=== PATIENT | male | born 1970 | race Two or more races ===

== ENCOUNTER 2025-08-03 09:58 | Inpatient (IN) | payer MEDICARE, MEDICAID ==
[2025-07-30 09:57] LABS: Hematocrit 42.3 % (41.0-53.0); Hemoglobin 14.2 g/dL (13.5-17.5); Mean Corpuscular Hemoglobin 31.2 pg (28.0-32.0); Mean Corpuscular Volume 93.2 fL (80.0-100.0); Nucleated Red Blood Cells % 0.0 %
[2025-07-30 10:08] LABS: Urine Protein, UAD Negative (Negative); Urine WBC Clumps PRESENT /hpf (None Seen)
[2025-07-30 10:13] LABS: INR 0.95 (0.9-1.15); Partial Thromboplastin Time 24.1 SEC (24.5-34.5); Prothrombin Time 10.1 sec (9.3-11.8)
[2025-07-30 10:39] LABS: Alanine Aminotransferase 22 U/L (7-40); Albumin 4.1 g/dL (3.2-4.8); Anion Gap 10 (5-15); BUN/Creatinine Ratio 10.6 (10.0-20.0); Blood Urea Nitrogen 12 mg/dL (9-23); Carbon Dioxide 24 mmol/L (20-31); Potassium 3.7 mmol/L (3.5-5.1); Sodium 143 mmol/L (136-145); Total Protein 7.1 g/dL (5.7-8.2)
[2025-07-30 10:40] LABS: Alkaline Phosphatase 121 U/L (46-116); Bilirubin, Total 0.5 mg/dL (0.2-1.0); Calcium 8.6 mg/dL (8.7-10.4); Chloride 109 mmol/L (98-107); Glucose 69 mg/dL (74-106)
[~2025-08-03] VITALS: Ht 165.1 cm; Wt 78.9 kg
[~2025-08-03 09:58] MED LIST: AMAN100T PO; ATOR10TA52 PO; CARB25TA79 PO; GABA-1250 PO; ISTR40TA PO; METH-1181 PO; PIMA34CA PO; RASA1TAB4 PO; TOPI50TA53 PO; TRAZ-228 PO
[2025-08-03] MEDS: ceFAZolin 2 GM/D5W50ml 50 ML IV ONE (11:17)
[2025-08-03] MEDS: TRANEXAMIC ACID 20 ML ONE (13:17)
--- NOTE | 2025-08-03 15:33 | DVHHP2 ---
Admitting Diagnosis: lumbar spinal stenosis with severe neurogenic claudication History of Present Illness Home Meds Reported Medications Atorvastatin Calcium (ATORVASTATIN CALCIUM) 10 Mg Tab, 10 MG PO DAILY, TAB 07/30/25 Carbidopa-Levodopa (Carbidopa/Levodopa Odt 25-100 mg) 1 Tab Tab, 1 TAB PO, TAB 07/30/25 Gabapentin (Gabapentin) 300 Mg Cap, 300 MG PO DAILY, CAP 07/30/25 Istradefylline (Nourianz) 40 Mg Tab, 40 MG PO HS, TAB 07/30/25 Pimavanserin Tartrate (Nuplazid) 34 Mg Cap, 34 MG PO QPM, CAP 07/30/25 Topiramate (Topiramate) 50 Mg Tab, 50 MG PO BID, TAB 07/30/25 Amantadine Hcl (Amantadine Hcl) 100 Mg Tab, 100 MG PO BID, TAB 07/30/25 Methocarbamol (Methocarbamol) 500 Mg Tab, 500 MG PO TID, TAB 07/30/25 Rasagiline Mesylate (Rasagiline Mesylate) 1 Mg Tab, 1 MG PO QAM, TAB 07/30/25 Trazodone Hcl (Trazodone Hcl) 100 Mg Tab, 100 MG PO QPM, TAB 07/30/25 Timing/Duration of Back Pain: Constant, Getting worse Quality of Back Pain: Aching, Burning, Fullness, Sharpness Back Pain Location: Lumbar spine Review of Systems Constitutional: No symptom reported Ears, Nose, & Throat: No symptom reported Eyes: No symptom reported Pulmonary/Respiratory: No symptom reported Cardiovascular: No symptom reported Gastrointestinal: No symptom reported Genitourinary: No symptom reported Musculoskeletal: Back pain Skin: No symptom reported Psychiatric: No symptom reported Endocrine: No symptom reported Hemotologic/Lymphatic: No symptom reported H&P Exam Vital Signs Vital Signs Date Time Temp Pulse Resp B/P (MAP) Pulse Ox O2 Delivery O2 Flow Rate FiO2 08/03/25 11:13 97.5 93 18 121/80 (94) 99 97.5 General Appeara: Well developed, Well nourished, Normal Appearance Head Exam: Normal inspection Neck Exam: Normal inspection, Non-tender, Normal alignment Eye Exam: bilateral eye Normal inspection, bilateral eye PERRL, bilateral eye EOMI Ear Exam: bilateral ear Auricle normal, bilateral ear Canal normal, bilateral ear TM normal Nasal Exam: Normal inspection Mouth: Normal Inspection Pulmonary/Respiratory: Normal inspection, Normal breath sounds, Chest non- tender, Lungs clear Cardiovascular/Chest: Normal inspection, Regular rate, Normal Rhythm Abdominal Exam: Normal bowel sounds, Soft, No tenderness, No hepatospenomegaly, No masses Rectal Exam: Deferred Back Exam: Muscle spasm, Vertebral tenderness Pelvic Exam: Not done Male Genital Exam: Not done Shoulder Exam: Normal inspection, Non-tender, Normal ROM Elbow/Forearm Exam: Normal inspection, Non-tender, Normal ROM Wrist Exam: Normal inspection, Non-tender, Normal ROM Hand Exam: Normal inspection, Non-tender, Normal ROM Hip exam: Normal inspection, Non-tender, Normal range of motion Legs: bilateral leg non-tender, bilateral leg normal inspection, bilateral leg normal range of motion, bilateral leg no evidence of injury Knees: bilateral knee non-tender, bilateral knee normal inspection, bilateral knee normal range of motion, bilateral knee no evidence of injury Ankle Exam: bilateral ankle Normal inspection, bilateral ankle Non-tender, bilateral ankle Normal range of motion, bilateral ankle No evidence of injury Foot: bilateral foot non-tender, bilateral foot normal inspection, bilateral foot normal range of motion, bilateral foot no evidence of injury Tendon/ Neuro: Motor deficit, Sensory deficit Motor/Sensory: Normal sensory function, Normal motor function, Negative Babinski's sign Deep Tendon Ref: All intact Neuro/Mental St: Alert, Oriented Appearance: Appropriate appearance, Appropriate insight Eye contact/ Speech: Cooperative, Good eye contact, Normal speech Coordination/Gait: Abnormal gait Skin Exam: Normal inspection, Normal color, Warm/dry Lymphatic: Normal inspection Labs/Xrays Labs Test 07/30/25 09:28 Range/Units White Blood Count 8.7 4.4-10.8 10^3/uL Red Blood Count 4.54 4.5-5.90 10^6/uL Hemoglobin 14.2 13.5-17.5 g/dL Hematocrit 42.3 41.0-53.0 % Mean Corpuscular Volume 93.2 80.0-100.0 fL Mean Corpuscular Hemoglobin 31.2 28.0-32.0 pg Mean Corpuscular Hemoglobin Concent 33.5 32.0-36.0 g/dL Red Cell Distribution Width 12.6 11.8-14.3 % Platelet Count 387 140-450 10^3/uL Mean Platelet Volume 7.3 6.9-10.8 fL Neutrophils (%) (Auto) 52.8 37.0-80.0 % Lymphocytes (%) (Auto) 34.0 10.0-50.0 % Monocytes (%) (Auto) 8.6 0.0-12.0 % Eosinophils (%) (Auto) 4.0 0.0-7.0 % Basophils (%) (Auto) 0.6 0.0-2.0 % Neutrophils # (Auto) 4.6 1.6-8.6 10 ^3/uL Lymphocytes # (Auto) 3.0 0.4-5.4 10 ^3/uL Monocytes # (Auto) 0.8 0-1.3 10 ^3/uL Eosinophils # (Auto) 0.4 0-0.8 10 ^3/uL Basophils # (Auto) 0.1 0-0.2 10 ^3/uL Nucleated Red Blood Cells 0.0 % Prothrombin Time 10.1 9.3-11.8 sec Prothrombin Time INR 0.95 0.9-1.15 Activated Partial Thromboplast Time 24.1 L 24.5-34.5 SEC Urine Color Colorless Yellow Urine Clarity Ex.turbid Clear Urine pH 7.0 5.0-9.0 Urine Specific [place] 1.024 1.001-1.035 Urine Protein Negative Negative Urine Ketones Negative Negative Urine Blood Negative Negative /uL Urine Nitrite Negative Negative Urine Bilirubin Negative Negative Urine Urobilinogen 2 H Negative mg/dL Urine Leukocyte Esterase Negative Negative /uL Urine RBC 1 0 - 3 /hpf Urine WBC Clumps Present None Seen /hpf Urine Microscopic WBC 14 H 0-3 /HPF Urine Squamous Epithelial Cells None seen <5 /hpf Urine Bacteria None seen None Seen /hpf Urine Glucose Normal Normal mg/dL Sodium Level 143 136-145 mmol/L Potassium Level 3.7 3.5-5.1 mmol/L Chloride Level 109 H 98-107 mmol/L Carbon Dioxide Level 24 20-31 mmol/L Anion Gap 10 5-15 Blood Urea Nitrogen 12 9-23 mg/dL Creatinine 1.13 0.700-1.30 mg/dL Glomerular Filtration Rate Calc 76 >90 mL/min BUN/Creatinine Ratio 10.6 10.0-20.0 Serum Glucose 69 L 74-106 mg/dL Calcium Level 8.6 L 8.7-10.4 mg/dL Total Bilirubin 0.5 0.2-1.0 mg/dL Aspartate Amino Transferase (AST) 20 13-40 U/L Alanine Aminotransferase (ALT) 22 7-40 U/L Alkaline Phosphatase 121 H 46-116 U/L Total Protein 7.1 5.7-8.2 g/dL Albumin 4.1 3.2-4.8 g/dL Assessment/Plan Primary Diagnosis Lumbar spinal stenosis with severe neurogenic claudication Plan admit for elective lumbar spine surgery Plan discussed with: Patient SANDRA MARIA MD Aug 03, 2025 15:33
[2025-08-03] MEDS ORDERED: fentaNYL CITRATE 100 MCG/2 ML VL ONE ×2 (15:37→16:11)
[2025-08-03] MEDS ORDERED: ONDANSETRON HCL 4 MG/2 ML VIAL ONE (15:37)
[2025-08-03] MEDS ORDERED: MIDAZOLAM HCL 2MG/2ML 2ml VIAL (1mg/ml) ONE (15:37)
[2025-08-03] MEDS ORDERED: LIDOCAINE 1% INJ PF 5ML AMP ONE (15:37)
[2025-08-03] MEDS ORDERED: METOCLOPRAMIDE HCL 5MG/ml INJ 2ml VIAL ONE (15:37)
[2025-08-03] MEDS ORDERED: ROCURONIUM 10MG/ML 10ML VIAL IV ONE (15:38)
[2025-08-03] MEDS ORDERED: PROPOFOL 10 MG/ML 20 ML IV ONE ×2 (15:38→16:07)
[2025-08-03] MEDS ORDERED: SODIUM CHLORIDE LOCK 10 ML ONE (16:15)
[2025-08-03] MEDS ORDERED: SUGAMMADEX 200mg/2ml Vial (100MG/ML) IV ONE (18:06)
--- NOTE | 2025-08-03 19:11 | DVHOP2 ---
Operative Report - 2 Report Details Date: 08/03/25 Preop Diagnosis: lumbar spinal stenosis at L3/4 and L4/5 with incapacitating neurogenic claudication Postop Diagnosis: same Surgeon: Dieter Maria MD House Painter: none Anesthesiologist: manuela Anesthesia: General Consent: The patient was informed of the risks and benefits of the procedure. These include but are not limited to complications of anesthesia, postoperative infection, incomplete relief of symptoms, recurrence of symptoms, damage to blood vessels, nerves and tendons, deep venous thrombosis, pulmonary embolism and possible need for repeat surgery in the future. Name of Procedure Performed see detailed note Procedure Details Procedure Details: Pre-op Diagnosis: Lumbar Degenerative Disk Disease and Lumbar Spinal Stenosis at L3/4 and L4/5 causing Incapacitating back pain, radiculopathy and progressive neurologic deficit Post-op Diagnosis: same as pre op Procedure: Lumbar 5 laminectomy with Lumbar 5 foraminotomies and facetectomies to decompress central canal and Lumbar 5 nerve roots Lumbar 4 laminectomy with Lumbar 4 foraminotomies and facetectomies to decomp ress central canal and Lumbar 4 nerve roots Lumbar 3 laminectomy with Lumbar 3 foraminotomies and facetectomies to decompress central canal and Lumbar 4 nerve roots Lumbar 3 to 5 posterior spinal inter transverse fusion with bone graft Lumbar 3 to 5 posterior spinal instrumentation with pedicle screws Local Bone Autograft For Fusion Allograft Bone S to augment Fusion Use of Demineralized Bone Matrix to Augment Fusion Microscope For Microdissection Surgeon: Dieter Maria MD Assist: none Anesthesia: General Fluids and EBL: See anesthesia note Patient was seen in the Pre Anesthesia Care Unit (PACU) and the operative site was initialed by me. All questions were answered to the patients satisfaction and chart reviewed. The patient was taken to the operative room where pre- operative antibiotics were given 30 minutes prior to incision. General anesthesia was induced and neuro-monitoring leads placed. Beth catheter was placed. The patient was turned prone onto the [facility] spinal table. While positioning, I made sure that the belly was free to allow proper expansion of the lungs. The hips were extended and all bony prominences padded. The shoulders were abducted 80 degree and the elbows flexed 100 degrees with no tension on the brachial plexus. I check the foot arterial pulses and they were palpable. The patient was prepped and draped and time out was taken at this time per usual protocol. At this time, the C-arm fluoroscope was brought in and was used to chau the incision borders proximally and distally. Using a Number 10 Blade, an incision was made extending it proximally and distally per C arm chau from the posterior spinous process of lumbar 4,5 down to the lumbo-dorsal fascia. All bleeding was controlled with electrocautery. Self-retaining retractors were placed. Electrocautery was then used to take down the lumbo- dorsal fascia, to free the muscle off the bone bilaterally. A Sony retractor was placed over the posterior spinous process proximally and a lateral C-arm fluoroscope image was taken to insure we were at the correct level. Next, using bovie electro cautery, The deep fascia laterally to the facet joints was removed to expose the transverse processes of lumbar 3, 4 and 5 while taking care to avoid injuring the facet capsule at the proximal end of the incision. Next, the microscope was bought in for visualization and using a Luxell rongeur, the posterior spinous process of lumbar 3 and 4 and 5 bone were removed and the bone was saved for use as local autograft. I used alternating Kerison 2 mm and 3 mm rongeurs to perform central laminectomies lumbar 5 and 4 and 3 to decompress the central canal. Next using alternating Kerison 2mm and 3 mm rongeurs, the superior articular facets of lumbar 3, 4 and 5 were removed bilaterally to decompress the lateral recess (facetectomies) and then extended proximally to decompress the foramen bilaterally (foraminotomies). I used a ball tipped nerve probed to insure that the respective nerve roots were able to be mobilized 5mm in each direction were unimpeded in the lateral recess and foramen. Next I carefully inspected the dura to make sure no durotomy was visible and it was not. I covered the exposed dura with gelfoam soaked in thrombin and the microscope was wheeled away from the operative filed. The C-arm fluoroscope was brought in and perfect AP views of the lumbar 4 and 5 pedicles were obtained. I placed marine ateral pedicle screws at these levels by: using a Lenke awl to make a pilot boat operator hole, then a ball tip robe to make sure there was no pedicle breach, then a tap to prepare the track and a 6.5 mm diameter 45 mm length pedicle screw was placed bilaterally. This step to place bilateral pedicle screws was repeated up to the lumbar 3, 4 and 5 level. Next, the c-arm fluoroscope took an AP and lateral x-ray to ensure proper placement of the pedicle screws. Next, the neuro-stimulation probe was placed over the tip of each screw and each screw stimulated only after a current greater than 10 mA was delivered to the screw. Next , I took a Midas Rolo Drill to decorticate the transverse process which were exposed and local bone graft, ; allograft bone and Demineralized bone matrix were placed along the inter transverse process intervals bilaterally (the fusion bed). Next a curved vincent sized to fit the pedicle screw interval was placed and secured to each pedicle screw using set screws, The set screws were tightened using a torque screwdriver (set to 10 N*M torque) to secure the vincent to the pedicle screws bilaterally. Final AP and lateral C arm fluoroscopic films were taken at this time. Next a 10 [place] diameter Hemovac drain was laced deep to the lumbo- dorsal fascia. The lumbo-dorsal fascia was closed with interrupted 0-Vicry sutures. The subcutaneous tissue was closed with interrupted 2-0 Vicryl sutures. 10 [place]ian Hemovac also placed in the subcutaneous tissue. The skin was closed with running 2-0 nylon suture. Sterile dressings were place. The pt. was turned supine onto the stretcher, extubated and taken to the recovery room in stable condition. Condition Good Disposition Still a Patient DIETER MARIA MD Aug 03, 2025 19:11
[2025-08-03] MEDS ORDERED: ONDANSETRON HCL 4 MG/2 ML VIAL IV PRN (19:15)
[2025-08-03] MEDS ORDERED: ceFAZolin 1GM/50ML 50 ML IV SCH ×2 (19:15→20:00)
[2025-08-03] MEDS ORDERED: MORPHINE SULFATE INJ 2 MG/ml SYRG IV PRN (19:15)
[2025-08-03] MEDS ORDERED: NITROGLYCERIN 0.4 MG SL TAB SL PRN (19:15)
[2025-08-03 19:30] VITALS: PULSE 73; RESP 16; O2SAT 100
[2025-08-03 19:37] VITALS: PULSE 76; RESP 12; O2SAT 100
[2025-08-03] MEDS: ACETAMINOPHEN IV 1000 MG/100ML (10MG/ML) IV ONE (19:40)
[2025-08-03 19:45] VITALS: PULSE 76; RESP 12; O2SAT 100
[2025-08-03] MEDS ORDERED: hydrALAZINE HCL 20 MG/ML VL IV PRN (19:45)
[2025-08-03] MEDS ORDERED: MIDAZOLAM HCL 2MG/2ML 2ml VIAL (1mg/ml) IV PRN (19:45)
[2025-08-03] MEDS: HYDROmorphone HCL 2 MG/ML VL/or syr IV PRN (19:49)
[2025-08-03] MEDS: ACETAMINOPHEN IV 100 ML IV ONE (19:51)
[2025-08-03] MEDS: HYDROmorphone HCL 2 MG/ML VL/or syr ONE (19:51)
[2025-08-03 20:00] VITALS: PULSE 86; RESP 12; O2SAT 100
[2025-08-03] MEDS: ONDANSETRON HCL 4 MG/2 ML VIAL IV PRN (20:25)
[2025-08-03] MEDS: CARBIDOPA W LEVODOPA 25/100mg TABLET PO SCH (20:30)
[2025-08-03] MEDS: METHOCARBAMOL 500 MG TAB PO SCH (20:30)
[2025-08-03] MEDS: TOPIRAMATE 25 MG TAB PO SCH (20:41)
[2025-08-03] MEDS: AMANTADINE HCL 100 MG CAP PO SCH (20:41)
[2025-08-03] MEDS: MORPHINE SULFATE 4 MG/ML SYR/VIAL IV PRN (20:45)
--- NOTE | 2025-08-03 21:14 | DVH ---
CLINICAL INDICATION: LUMBAR TECHNIQUE: 13 radiographic views of the 12 images of intraoperative posterior fusion lower lumbar spine L3-4 and 5.1 image dose sheet. were obtained. Comparison: None FINDINGS/IMPRESSION: Total fluoro time 71.3 seconds Cumulative dose: 31.54 mGy
--- NOTE | 2025-08-03 21:16 | DVH ---
C-ARM FLUOROSCOPY: PROCEDURE: Fluoroscopy up to 60 minutes lumbar spine FLUOROSCOPY TIME: Total fluoro time 71.3 seconds Air Kerma: 31.54 mGy mgy FINDINGS: Spot intraoperative C arm radiographs demonstrating surgery and lumbar spine. Only 1 image received which was the dose summary sheet.. IMPRESSION: 1. Please refer to surgical report for detailed findings.
[2025-08-03 21:30] VITALS: BP 119/84; PULSE 103; RESP 18; TEMP 97.4; O2SAT 98
[2025-08-03] MEDS: D5W/SOD CHLO 0.9% 1,000 ML IV SCH (21:45)
[2025-08-03] MEDS: CYCLOBENZAPRINE HCL 10 MG TAB PO SCH (22:19)
[2025-08-03] MEDS: DOCUSATE SOD 100 MG CAP PO SCH (22:19)
[2025-08-03 22:30] VITALS: PULSE 112; RESP 16; O2SAT 93
[2025-08-03] MEDS: ceFAZolin 1GM/50ML 50 ML IV SCH (23:45)
[2025-08-04] VITALS (8 sets, daily range): BP systolic 104–123; BP diastolic 72–85; PULSE 100–112; RESP 17–72; TEMP 97.7–98.3; O2SAT 95–99
[2025-08-04] MEDS: MORPHINE SULFATE 4 MG/ML SYR/VIAL IV PRN (01:01)
--- NOTE | 2025-08-04 10:16 | DVHINCON2 ---
Date Seen: Aug 04, [address] MARIA Family History: Patient reports no known family medical history. Allergies: Coded Allergies: NO KNOWN ALLERGIES (Unverified , 07/30/25) Home Meds Reported Medications Atorvastatin Calcium (ATORVASTATIN CALCIUM) 10 Mg Tab, 10 MG PO DAILY, TAB 07/30/25 Carbidopa-Levodopa (Carbidopa/Levodopa Odt 25-100 mg) 1 Tab Tab, 1 TAB PO, TAB 07/30/25 Gabapentin (Gabapentin) 300 Mg Cap, 300 MG PO DAILY, CAP 07/30/25 Istradefylline (Nourianz) 40 Mg Tab, 40 MG PO HS, TAB 07/30/25 Pimavanserin Tartrate (Nuplazid) 34 Mg Cap, 34 MG PO QPM, CAP 07/30/25 Topiramate (Topiramate) 50 Mg Tab, 50 MG PO BID, TAB 07/30/25 Amantadine Hcl (Amantadine Hcl) 100 Mg Tab, 100 MG PO BID, TAB 07/30/25 Methocarbamol (Methocarbamol) 500 Mg Tab, 500 MG PO TID, TAB 07/30/25 Rasagiline Mesylate (Rasagiline Mesylate) 1 Mg Tab, 1 MG PO QAM, TAB 07/30/25 Trazodone Hcl (Trazodone Hcl) 100 Mg Tab, 100 MG PO QPM, TAB 07/30/25 Current Medications Current Medications Medications (Trade) Dose Ordered Sig/Tommy Route PRN Reason Start Time Stop Time Status Last Admin Dextrose/Sodium Chloride 1,000 ml @ 100 mls/hr Q10H IV 08/03/25 19:15 08/04/25 09:19 Ondansetron HCl (Zofran) 4 mg Q4HP PRN IV NAUSEA / VOMITING 08/03/25 19:15 Acetaminophen (Tylenol Tablet) 650 mg Q6HP PRN PO MILD PAIN (1-3 PAIN SCALE) 08/03/25 19:15 Acetaminophen/ Hydrocodone Bitart (Mathews 10/325MG Tab) 1 tab Q6HP PRN PO MODERATE PAIN (4-6 PAIN SCALE) 08/03/25 19:15 Morphine Sulfate 1 mg Q4HP PRN IV SEVERE PAIN (7-10 PAIN SCALE) 08/03/25 19:15 08/04/25 06:03 Cefazolin Sodium 50 ml @ 50 mls/hr Q8H IV 08/03/25 19:15 08/04/25 04:14 UNV Cyclobenzaprine HCl (Flexeril Tablet) 10 mg TID PO 08/03/25 22:00 08/04/25 05:46 Docusate Sodium (Colace Capsule) 100 mg BID PO 08/03/25 22:00 08/03/25 22:19 Cefazolin Sodium 50 ml @ 100 mls/hr Q8H IV 08/03/25 20:00 08/03/25 20:32 DC Nitroglycerin (Ntrostat Sublingual) 0.4 mg Q5MINP PRN SL FOR CHEST PAIN 08/03/25 19:15 Morphine Sulfate 2 mg Q30M PRN IV FOR CHEST PAIN 08/03/25 19:15 Ondansetron HCl (Zofran) 4 mg ONCE PRN IV NAUSEA / VOMITING 08/03/25 19:45 08/03/25 19:46 DC 08/03/25 20:25 Hydralazine HCl (Apresoline Injection) 5 mg Q10M PRN IV SBP>160 08/03/25 19:45 08/03/25 20:36 DC Morphine Sulfate 2 mg Q2HPRN PRN IV BREAKTHROUGH PAIN (7-10) 08/03/25 19:45 08/03/25 19:46 DC 08/03/25 20:45 Midazolam HCl (Versed Injection) 1 mg Q10M PRN IV ANXIETY 08/03/25 19:45 08/03/25 20:26 DC Ephedrine Sulfate (ePHEDrine SULFATE) 10 mg Q10M PRN IV SBP LESS THAN 90 08/03/25 19:45 08/03/25 20:26 DC Hydromorphone HCl (Dilaudid Injection) 0.5 mg Q10M PRN IV SEVERE PAIN (7-10 PAIN SCALE) 08/03/25 19:45 08/03/25 20:26 DC 08/03/25 20:25 Methocarbamol (Robaxin) 500 mg TID PO 08/03/25 22:00 Hold Amantadine HCl (Symmetrel Capsule) 100 mg BID PO 08/03/25 22:00 Patient Own Medication 40 mg HS PO 08/03/25 22:00 Patient Own Medication 34 mg QPM PO 08/04/25 18:00 Patient Own Medication 1 mg QAM PO 08/04/25 07:00 Topiramate (Topamax) 50 mg BID PO 08/03/25 22:00 Carbidopa/Levodopa (Sinemet 25/ 100MG) 1 tab BID PO 08/03/25 22:00 Cefazolin Sodium 50 ml @ 100 mls/hr Q8H IV 08/04/25 00:00 08/05/25 16:29 08/03/25 23:45 Gabapentin (Neurontin Capsule) 300 mg DAILY PO 08/04/25 10:00 Atorvastatin Calcium (Lipitor) 10 mg DAILY PO 08/04/25 10:00 Trazodone HCl (Desyrel) 100 mg HS PO 08/04/25 22:00 Vital Signs Vital Signs Date Time Temp Pulse Resp B/P (MAP) Pulse Ox O2 Delivery O2 Flow Rate FiO2 08/04/25 08:38 97.7 100 19 104/75 (85) 97 97.7 08/03/25 22:30 Room Air* 0 21 Labs/Diagnostic Data Labs Test 07/30/25 09:28 Range/Units White Blood Count 8.7 4.4-10.8 10^3/uL Red Blood Count 4.54 4.5-5.90 10^6/uL Hemoglobin 14.2 13.5-17.5 g/dL Hematocrit 42.3 41.0-53.0 % Mean Corpuscular Volume 93.2 80.0-100.0 fL Mean Corpuscular Hemoglobin 31.2 28.0-32.0 pg Mean Corpuscular Hemoglobin Concent 33.5 32.0-36.0 g/dL Red Cell Distribution Width 12.6 11.8-14.3 % Platelet Count 387 140-450 10^3/uL Mean Platelet Volume 7.3 6.9-10.8 fL Neutrophils (%) (Auto) 52.8 37.0-80.0 % Lymphocytes (%) (Auto) 34.0 10.0-50.0 % Monocytes (%) (Auto) 8.6 0.0-12.0 % Eosinophils (%) (Auto) 4.0 0.0-7.0 % Basophils (%) (Auto) 0.6 0.0-2.0 % Neutrophils # (Auto) 4.6 1.6-8.6 10 ^3/uL Lymphocytes # (Auto) 3.0 0.4-5.4 10 ^3/uL Monocytes # (Auto) 0.8 0-1.3 10 ^3/uL Eosinophils # (Auto) 0.4 0-0.8 10 ^3/uL Basophils # (Auto) 0.1 0-0.2 10 ^3/uL Nucleated Red Blood Cells 0.0 % Prothrombin Time 10.1 9.3-11.8 sec Prothrombin Time INR 0.95 0.9-1.15 Activated Partial Thromboplast Time 24.1 L 24.5-34.5 SEC Urine Color Colorless Yellow Urine Clarity Ex.turbid Clear Urine pH 7.0 5.0-9.0 Urine Specific [place] 1.024 1.001-1.035 Urine Protein Negative Negative Urine Ketones Negative Negative Urine Blood Negative Negative /uL Urine Nitrite Negative Negative Urine Bilirubin Negative Negative Urine Urobilinogen 2 H Negative mg/dL Urine Leukocyte Esterase Negative Negative /uL Urine RBC 1 0 - 3 /hpf Urine WBC Clumps Present None Seen /hpf Urine Microscopic WBC 14 H 0-3 /HPF Urine Squamous Epithelial Cells None seen <5 /hpf Urine Bacteria None seen None Seen /hpf Urine Glucose Normal Normal mg/dL Sodium Level 143 136-145 mmol/L Potassium Level 3.7 3.5-5.1 mmol/L Chloride Level 109 H 98-107 mmol/L Carbon Dioxide Level 24 20-31 mmol/L Anion Gap 10 5-15 Blood Urea Nitrogen 12 9-23 mg/dL Creatinine 1.13 0.700-1.30 mg/dL Glomerular Filtration Rate Calc 76 >90 mL/min BUN/Creatinine Ratio 10.6 10.0-20.0 Serum Glucose 69 L 74-106 mg/dL Calcium Level 8.6 L 8.7-10.4 mg/dL Total Bilirubin 0.5 0.2-1.0 mg/dL Aspartate Amino Transferase (AST) 20 13-40 U/L Alanine Aminotransferase (ALT) 22 7-40 U/L Alkaline Phosphatase 121 H 46-116 U/L Total Protein 7.1 5.7-8.2 g/dL Albumin 4.1 3.2-4.8 g/dL Assessment SEE DICTATED NOTE Plan discussed with: Patient, Spouse Date of Service: Aug 04, 2025 Billing Provider: SIENNA DESHPANDE MD Common Visit Codes: 67868-[id number] INP/OBS CARE (HIGH) Secondary Visit Codes: 75226-[id number] CARE PLAN ADDL 30MIN SIENNA DESHPANDE MD Aug 04, 2025 10:16
[2025-08-04] MEDS: Rasagiline Mesylate 1 MG PO SCH (10:27)
[2025-08-04] MEDS: GABAPENTIN 300 MG CAP PO SCH (10:28)
[2025-08-04] MEDS: ATORVASTATIN 20 MG TAB PO SCH (10:28)
--- NOTE | 2025-08-04 10:36 | DVHINCON2 ---
INTERNAL MEDICINE CONSULT HISTORY OF PRESENT ILLNESS: The patient is a 55-year-old gentleman who is admitted after he underwent surgery for lumbar spinal stenosis for severe neurogenic claudication. The patient at this time complains of pain in the back. No chest pain, no shortness of breath. No focal deficit. No nausea or vomiting. REVIEW OF SYSTEMS: Review of rest of systems is otherwise currently negative. PAST MEDICAL HISTORY: Significant for Parkinson's disease and hyperlipidemia. MEDICATIONS: He takes amantadine, atorvastatin, Sinemet, gabapentin, methocarbamol, Nuplazid, rasagiline, Topamax, and trazodone. ALLERGIES: No known drug allergies. SOCIAL HISTORY: No history of smoking or alcohol. He lives at home with his . FAMILY HISTORY: Negative. PHYSICAL EXAMINATION: GENERAL: The patient is awake, alert. VITAL SIGNS: Temperature of 98, pulse 102 per minute, blood pressure 109/72. SHEENT: Unremarkable. NECK: There is no JVD. EXTREMITIES: No pedal edema. LUNGS: Equal bilaterally. No added sounds. CARDIOVASCULAR: S1 and S2 is regular rate and rhythm, no murmurs. ABDOMEN: Soft. There is no organomegaly. NEUROLOGIC: Nonfocal. MUSCULOSKELETAL: There is a dressing at the site of the lumbar spine surgery with drains. ASSESSMENT AND PLAN: * Parkinson's disease for which the patient will continue his home medications as prescribed. * Hyperlipidemia. * Status post lumbar spine surgery for severe neurogenic claudication. The patient will be placed on pain medication and receive physical therapy. * Advanced care planning. The patient is a Full Code-The time spent was 17 minutes. MD ARLET Costello/NIA TID: [id number] RECEIPT: [id number] [facility]ENTER[facility]
[2025-08-04] MEDS: HYDROcodone-ACET 10/325MG TAB PO PRN (22:04)
[2025-08-04] MEDS: ACETAMINOPHEN 325 MG TAB PO PRN (23:42)
[2025-08-05] VITALS (8 sets, daily range): BP systolic 102–129; BP diastolic 75–92; PULSE 61–113; RESP 16–18; TEMP 97.6–98; O2SAT 96–97
[2025-08-05 06:36] LABS: Hematocrit 35.5 % (41.0-53.0); Hemoglobin 12.0 g/dL (13.5-17.5); Mean Corpuscular Hemoglobin 31.7 pg (28.0-32.0); Mean Corpuscular Volume 93.3 fL (80.0-100.0); Nucleated Red Blood Cells % 0.0 %
[2025-08-05 07:04] LABS: Alanine Aminotransferase 10 U/L (7-40); Alkaline Phosphatase 103 U/L (46-116); Anion Gap 11 (5-15); Carbon Dioxide 22 mmol/L (20-31); Glucose 103 mg/dL (74-106); Potassium 3.8 mmol/L (3.5-5.1); Sodium 142 mmol/L (136-145); Total Protein 5.9 g/dL (5.7-8.2)
[2025-08-05 07:05] LABS: Albumin 3.5 g/dL (3.2-4.8); BUN/Creatinine Ratio 5.7 (10.0-20.0); Bilirubin, Total 1.2 mg/dL (0.2-1.0); Blood Urea Nitrogen < 5 mg/dL (9-23); Calcium 8.4 mg/dL (8.7-10.4); Chloride 109 mmol/L (98-107)
--- NOTE | 2025-08-05 10:00 | DVHPN2 ---
Progress Note Date Seen: Aug 05, 2025 Medical Necessity Reason Pt with a Central, PICC or Fol: No Subjective Patient reports: No new complaints Review of Systems: HEENT:Normal, CVS:Normal, RESPIRATORY:Normal, GI:Normal, :Normal, MSK:Normal, NEURO:Normal Objective vital signs Vital Sign Date Time Temp Pulse Resp B/P (MAP) Pulse Ox O2 Delivery O2 Flow Rate FiO2 08/05/25 08:59 99 17 104/76 08/05/25 08:37 97.9 97 97.9 08/05/25 08:09 Room Air* 0 21 Total Intake and Output 08/04/25 08/04/25 08/05/25 15:00 23:00 07:00 Intake Total 50 ml 250 ml 280 ml Output Total 600 ml 1380 ml Balance 50 ml -350 ml -1100 ml medications Current Medications Medications Dose Ordered Sig/Tommy Route Start Time Stop Time Status Last Admin Dose Admin Dextrose/Sodium Chloride 1,000 ml @ 100 mls/hr Q10H IV 08/03/25 19:15 08/04/25 23:41 100 MLS/HR Ondansetron HCl 4 mg Q4HP PRN IV 08/03/25 19:15 Acetaminophen 650 mg Q6HP PRN PO 08/03/25 19:15 08/04/25 23:42 650 MG Acetaminophen/ Hydrocodone Bitart 1 tab Q6HP PRN PO 08/03/25 19:15 08/05/25 06:10 1 TAB Morphine Sulfate 1 mg Q4HP PRN IV 08/03/25 19:15 08/05/25 08:59 1 MG Cefazolin Sodium 50 ml @ 50 mls/hr Q8H IV 08/03/25 19:15 08/04/25 04:14 UNV Cyclobenzaprine HCl 10 mg TID PO 08/03/25 22:00 08/05/25 06:04 10 MG Docusate Sodium 100 mg BID PO 08/03/25 22:00 08/05/25 08:58 100 MG Nitroglycerin 0.4 mg Q5MINP PRN SL 08/03/25 19:15 Morphine Sulfate 2 mg Q30M PRN IV 08/03/25 19:15 Methocarbamol 500 mg TID PO 08/03/25 22:00 Hold Amantadine HCl 100 mg BID PO 08/03/25 22:00 08/05/25 08:57 100 MG Patient Own Medication 40 mg HS PO 08/03/25 22:00 08/04/25 22:11 40 MG Patient Own Medication 34 mg QPM PO 08/04/25 18:00 08/04/25 18:10 34 MG Patient Own Medication 1 mg QAM PO 08/04/25 07:00 08/05/25 06:05 1 MG Topiramate 50 mg BID PO 08/03/25 22:00 08/05/25 08:58 50 MG Carbidopa/Levodopa 1 tab BID PO 08/03/25 22:00 08/05/25 08:58 1 TAB Cefazolin Sodium 50 ml @ 100 mls/hr Q8H IV 08/04/25 00:00 08/05/25 16:29 08/05/25 08:57 100 MLS/HR Gabapentin 300 mg DAILY PO 08/04/25 10:00 08/05/25 08:58 300 MG Atorvastatin Calcium 10 mg DAILY PO 08/04/25 10:00 08/05/25 08:58 10 MG Trazodone HCl 100 mg HS PO 08/04/25 22:00 08/04/25 22:08 100 MG Examination: GENERAL:Normal, HEENT:Normal, NECK:Normal, LUNGS:Normal, CVS:Normal, ABDOMEN:Normal, MSK:Normal, MSK:Abnormal (LUMBER DRESSING, DRAINS+), SKIN:Normal, NEURO:Normal, :Normal laboratory and microbiology Laboratory Tests 08/05/25 04:54 Test 08/05/25 04:54 Range/Units Serum Glucose 103 74-106 mg/dL Problem List/Assessment/Plan Problem List/Assessment/Plan * Parkinson's disease for which the patient will continue his home medications as prescribed. * Hyperlipidemia. * Status post lumbar spine surgery for severe neurogenic claudication. The patient will be placed on pain medication and receive physical therapy. * Advanced care planning. The patient is a Full Code- The time spent was 17 minutes. Plan discussed with: Patient My Orders My Orders Orders - SIENNA DESHPANDE MD Procedure Category Date Status Time Bladder Scan ORDERS 08/04/25 Transmitted 12:39 Discontinue Tele LYNNE 08/05/25 Verified 09:55 Transfer Orders XFER 08/05/25 Verified 09:55 Date of Service: Aug 05, 2025 Billing Provider: SIENNA DESHPANDE MD Common Visit Codes: [id number] INP/OBS CARE(HIGH) SIENNA DESHPANDE MD Aug 05, 2025 10:00
[2025-08-05] MEDS: SIMETHICONE 80 MG CHEWABLE TABLET PO PRN (23:31)
--- NOTE | 2025-08-05 23:36 | DVHPN2 ---
Progress Note - Spine Surgery Date Seen: Aug 05, 2025 Procedure Name lumbar spinal decompression and fusion Implant used pedicle screw consult Post op day Post op day: 2 Subjective Review of Systems: HEENT:Normal, CVS:Normal, RESPIRATORY:Normal, GI:Normal, :Normal, MSK:Normal, NEURO:Normal Objective Vital signs Vital Sign Date Time Temp Pulse Resp B/P (MAP) Pulse Ox O2 Delivery O2 Flow Rate FiO2 08/05/25 21:00 97.8 113 18 119/90 (100) 97 97.8 08/05/25 20:00 Room Air* 0 21 Total Intake and Output 08/04/25 08/04/25 08/05/25 15:00 23:00 07:00 Intake Total 50 ml 250 ml 280 ml Output Total 600 ml 1380 ml Balance 50 ml -350 ml -1100 ml Medications Current Medications Medications Dose Ordered Sig/Tommy Route Start Time Stop Time Status Last Admin Dose Admin Ondansetron HCl 4 mg Q4HP PRN IV 08/03/25 19:15 Acetaminophen 650 mg Q6HP PRN PO 08/03/25 19:15 08/04/25 23:42 650 MG Acetaminophen/ Hydrocodone Bitart 1 tab Q6HP PRN PO 08/03/25 19:15 08/05/25 06:10 1 TAB Morphine Sulfate 1 mg Q4HP PRN IV 08/03/25 19:15 08/05/25 08:59 1 MG Cefazolin Sodium 50 ml @ 50 mls/hr Q8H IV 08/03/25 19:15 08/04/25 04:14 UNV Cyclobenzaprine HCl 10 mg TID PO 08/03/25 22:00 08/05/25 22:16 10 MG Docusate Sodium 100 mg BID PO 08/03/25 22:00 08/05/25 22:17 100 MG Nitroglycerin 0.4 mg Q5MINP PRN SL 08/03/25 19:15 Morphine Sulfate 2 mg Q30M PRN IV 08/03/25 19:15 Methocarbamol 500 mg TID PO 08/03/25 22:00 Hold Amantadine HCl 100 mg BID PO 08/03/25 22:00 08/05/25 22:15 100 MG Patient Own Medication 40 mg HS PO 08/03/25 22:00 08/05/25 22:17 40 MG Patient Own Medication 34 mg QPM PO 08/04/25 18:00 08/05/25 18:14 34 MG Patient Own Medication 1 mg QAM PO 08/04/25 07:00 08/05/25 06:05 1 MG Topiramate 50 mg BID PO 08/03/25 22:00 08/05/25 22:15 50 MG Carbidopa/Levodopa 1 tab BID PO 08/03/25 22:00 08/05/25 22:16 1 TAB Gabapentin 300 mg DAILY PO 08/04/25 10:00 08/05/25 08:58 300 MG Atorvastatin Calcium 10 mg DAILY PO 08/04/25 10:00 08/05/25 08:58 10 MG Trazodone HCl 100 mg HS PO 08/04/25 22:00 08/05/25 22:13 100 MG Dimethicone 40 mg QIDP PRN PO 08/05/25 23:15 08/05/25 23:31 40 MG Laboratory Laboratory Tests 08/05/25 04:54 Test 08/05/25 04:54 Range/Units Serum Glucose 103 74-106 mg/dL Examination: HEENT:Normal, NECK:Normal, LUNGS:Normal, ABDOMEN:Normal, MSK:Normal, SKIN:Normal, NEURO:Normal, :Normal Problem List/Assessment/Plan Assessment and Plan lumbar spinal stenosis Post op Plan -Discharge RX: -To be determined during postoperative hospital stay depending on the effectiveness of the current pain medication. - Preferred pharmacy, [ ] -Follow up appointment: With Dr Miranda on [ ] [id number] [facility] [address] [place] [id number] -Pain: - IV pain meds post op day 1, with PO supplementation, goal is to progress weaning off IV medications and control pain with PO only. Currently has morphine 1mg for pain 7-10 - P.O. analgesics: [place] 10/325 mg for pain 4-6, Tylenol 650mg for pain 1-3 - Muscle relaxers scheduled administration. This is a beneficial medications for the incisional pain as it is mostly related to muscle spasms. Currently has Flexeril 10mg TID -Antibiotics Operative recommendations: -Post operative antibiotics completed on POD #1 -Activity: -Pending PT evaluation and patients progression -Sit at side of bed for meals -Goal: Ambulate independently and safely (may use assistive devices if needed) -Brace: - No brace needed -Medical Therapy goals: -Afebrile- Patient may develop a expected post operative fever by day 2-3, this may not be accompanied with a elevation in WBC. if fever develops: Acetaminophen for fever. Albuterol nebulizer Tx every 12 hours for 24 hours to facilitate adequate lung expansion and prevent development of atelectasis. -Euglycemic: bloods sugars under 130mmol/L for optimal healing -Normotensive: Avoid events of hypertension. This helps to keep post operative healing intact and avoids destabilization of beneficial hemostatic coagulation. -Drains: Current output drain #1= 0.5 mL, drain #2= 0 mL: drain #3= 80 mL. these will remain in place today possible discontinuation tomorrow -Hemovac drains: These will be to full compression unless otherwise ordered. please record and document output AND characteristic of fluid present independently at least once a shift, more often as needed. If output is greater than 100 ml in one hour of [place]urel blood call provider. These drains will be removed once the drainage is at a acceptable level (generally less than 100ml in 24 hours) -Sola dressing: This will stay in place and will be removed at the patients follow up visit. Nursing is to assess the seal and power source. The seal should be intact and the power source should have a green flashing light indicating it is functioning well. Batteries can last up to 14 days. If a leak develops the dressing edges can be reinforced with a Tegaderm dressing to reestablish intact seal. The sola dressing is NOT a wound vac. This does not get changed, it does not need home health management. -Beth: -Removed in the PACU. -Dressings -Dressing to Hemovac drains may be changed once the drains have been removed by the provider. Take care not to disrupt the SOLA dressing seal. If there is a break in the seal it can be trouble shot with a Tegaderm dressing. -Bowel management: -Ambulation when able -Coffee if allowed by dietary restrictions, if any. -Currently on Colace 100mg BID -Diet: -Clear liquid diet and advance as patient tolerates within dietary limitations ( diabetic, Cardiac) -DVT PPX: -Hold all chemical DVT/ blood thinners for 14 days postoperatively -use mechanical DVT PPX such as SCD's, ambulation -Incentive Spirometer: -10 x hour while awake, RN please educate and observe repeat demonstration, have IS at bedside POD #1 -X-rays: - none indicated at this time -Consults: -Physical Therapy evaluation, treatment recommendations, and discharge recommendations Call with questions Marlys Wagner ACNP- Orthopaedic Spine Surgery nurse practitioner For Dr Zaid Miranda [phone]- for staff use only Patient was examined, chart reviewed, labs evaluated, and diagnostic studies and findings analyzed. Case was discussed with Dr. Dieter Miranda who formulated the plan of care. This medical document was created using an electronic medical record system with [employer] dictation system. Although this document has been carefully reviewed, there might still be some phonetic and typographical errors. These areas are purely typographical due to imperfections of the software programs, and do not reflect any compromise in the patient's medical care. My Orders My Orders Orders - DIETER MIRANDA MD Procedure Category Date Status Time Simethicone Tab PHA 08/05/25 In Process (Mylicon Tab) 23:15 Plan discussed with Plan discussed with: Patient DIETER MIRANDA MD Aug 05, 2025 23:36
[2025-08-06] VITALS (7 sets, daily range): BP systolic 115–129; BP diastolic 77–86; PULSE 101–127; RESP 17–20; TEMP 97.9–99.8; O2SAT 95–98
--- NOTE | 2025-08-06 18:01 | DVHPN2 ---
Subjective In bed with some pain Reviewed: H&P Changes from previous H/P or p: No Changes Objective Vitals Vital Signs Date Time Temp Pulse Resp B/P (MAP) Pulse Ox O2 Delivery O2 Flow Rate FiO2 08/06/25 17:30 98.1 117 17 115/83 (94) 96 98.1 08/06/25 07:55 Room Air* 0 21 Intake/Output Intake and Output 08/06/25 05:00 Intake Total 1100 ml Output Total 1250 ml Balance -150 ml Intake Oral 1050 ml IV Total 50 ml Output Urine Total 1250 ml General Appearance: Alert, Oriented X3 HEENT: Atraumatic Cardiovascular: Regular rate, Normal S1, Normal S2 Abdomen: Normal bowel sounds Medications Current Medications Medications Dose Ordered Sig/Tommy Route Start Time Stop Time Status Last Admin Dose Admin Ondansetron HCl 4 mg Q4HP PRN IV 08/03/25 19:15 Acetaminophen 650 mg Q6HP PRN PO 08/03/25 19:15 08/04/25 23:42 650 MG Acetaminophen/ Hydrocodone Bitart 1 tab Q6HP PRN PO 08/03/25 19:15 08/06/25 02:55 1 TAB Morphine Sulfate 1 mg Q4HP PRN IV 08/03/25 19:15 08/06/25 09:16 1 MG Cefazolin Sodium 50 ml @ 50 mls/hr Q8H IV 08/03/25 19:15 08/04/25 04:14 UNV Cyclobenzaprine HCl 10 mg TID PO 08/03/25 22:00 08/06/25 14:27 10 MG Docusate Sodium 100 mg BID PO 08/03/25 22:00 08/06/25 09:19 100 MG Nitroglycerin 0.4 mg Q5MINP PRN SL 08/03/25 19:15 Morphine Sulfate 2 mg Q30M PRN IV 08/03/25 19:15 Methocarbamol 500 mg TID PO 08/03/25 22:00 Hold Amantadine HCl 100 mg BID PO 08/03/25 22:00 08/06/25 09:19 100 MG Patient Own Medication 40 mg HS PO 08/03/25 22:00 08/05/25 22:17 40 MG Patient Own Medication 34 mg QPM PO 08/04/25 18:00 08/05/25 18:14 34 MG Patient Own Medication 1 mg QAM PO 08/04/25 07:00 08/06/25 06:13 1 MG Topiramate 50 mg BID PO 08/03/25 22:00 08/06/25 09:20 50 MG Carbidopa/Levodopa 1 tab BID PO 08/03/25 22:00 08/06/25 09:19 1 TAB Gabapentin 300 mg DAILY PO 08/04/25 10:00 08/06/25 09:20 300 MG Atorvastatin Calcium 10 mg DAILY PO 08/04/25 10:00 08/06/25 09:19 10 MG Trazodone HCl 100 mg HS PO 08/04/25 22:00 08/05/25 22:13 100 MG Dimethicone 40 mg QIDP PRN PO 08/05/25 23:15 08/05/25 23:31 40 MG Laboratory Results Laboratory Tests 08/05/25 04:54 Urinalysis Test 07/30/25 09:28 Urine Color Colorless (Yellow) Urine Clarity Ex.turbid (Clear) Urine pH 7.0 (5.0-9.0) Urine Specific [place] 1.024 (1.001-1.035) Urine Protein Negative (Negative) Urine Ketones Negative (Negative) Urine Blood Negative /uL (Negative) Urine Nitrite Negative (Negative) Urine Bilirubin Negative (Negative) Urine Urobilinogen 2 mg/dL (Negative) H Urine Leukocyte Esterase Negative /uL (Negative) Urine RBC 1 /hpf (0 - 3) Urine WBC Clumps Present /hpf (None Seen) Urine Microscopic WBC 14 /HPF (0-3) H Urine Squamous Epithelial Cells None seen /hpf (<5) Urine Bacteria None seen /hpf (None Seen) Urine Glucose Normal mg/dL (Normal) Assessment/Plan Assessment/Plan * Parkinson's disease for which the patient will continue his home medications as prescribed. * Hyperlipidemia. * Status post lumbar spine surgery for severe neurogenic claudication. The patient will be placed on pain medication and receive physical therapy. Plan discussed with: Patient Date of Service: Aug 06, 2025 Billing Provider: ANTHONY ROBERTS MD Common Visit Codes: [id number] INP/OBS CARE(HIGH) ANTHONY ROBERTS MD Aug 06, 2025 18:01
[2025-08-07] VITALS (7 sets, daily range): BP systolic 104–127; BP diastolic 75–92; PULSE 100–116; RESP 14–20; TEMP 97.8–100; O2SAT 95–97
--- NOTE | 2025-08-07 13:14 | DVHPN2 ---
Subjective In bed with some pain Reviewed: H&P Changes from previous H/P or p: No Changes Objective Vitals Vital Signs Date Time Temp Pulse Resp B/P (MAP) Pulse Ox O2 Delivery O2 Flow Rate FiO2 08/07/25 12:33 100.0 100 14 104/75 (85) 95 100.0 08/06/25 20:00 Room Air* 0 21 Intake/Output Intake and Output 08/07/25 07:00 Intake Total 850 ml Balance 850 ml Intake Oral 850 ml # Voids 6 General Appearance: Alert, Oriented X3 HEENT: Atraumatic Cardiovascular: Regular rate, Normal S1, Normal S2 Abdomen: Normal bowel sounds Medications Current Medications Medications Dose Ordered Sig/Tommy Route Start Time Stop Time Status Last Admin Dose Admin Ondansetron HCl 4 mg Q4HP PRN IV 08/03/25 19:15 Acetaminophen 650 mg Q6HP PRN PO 08/03/25 19:15 08/04/25 23:42 650 MG Acetaminophen/ Hydrocodone Bitart 1 tab Q6HP PRN PO 08/03/25 19:15 08/07/25 04:23 1 TAB Morphine Sulfate 1 mg Q4HP PRN IV 08/03/25 19:15 08/06/25 09:16 1 MG Cefazolin Sodium 50 ml @ 50 mls/hr Q8H IV 08/03/25 19:15 08/04/25 04:14 UNV Cyclobenzaprine HCl 10 mg TID PO 08/03/25 22:00 08/07/25 05:11 10 MG Docusate Sodium 100 mg BID PO 08/03/25 22:00 08/07/25 10:32 100 MG Nitroglycerin 0.4 mg Q5MINP PRN SL 08/03/25 19:15 Morphine Sulfate 2 mg Q30M PRN IV 08/03/25 19:15 Methocarbamol 500 mg TID PO 08/03/25 22:00 Hold Amantadine HCl 100 mg BID PO 08/03/25 22:00 08/07/25 10:31 100 MG Patient Own Medication 40 mg HS PO 08/03/25 22:00 08/06/25 21:31 40 MG Patient Own Medication 34 mg QPM PO 08/04/25 18:00 08/06/25 18:40 34 MG Patient Own Medication 1 mg QAM PO 08/04/25 07:00 08/07/25 05:11 1 MG Topiramate 50 mg BID PO 08/03/25 22:00 08/07/25 10:32 50 MG Carbidopa/Levodopa 1 tab BID PO 08/03/25 22:00 08/07/25 10:33 1 TAB Gabapentin 300 mg DAILY PO 08/04/25 10:00 08/07/25 10:34 300 MG Atorvastatin Calcium 10 mg DAILY PO 08/04/25 10:00 08/07/25 10:34 10 MG Trazodone HCl 100 mg HS PO 08/04/25 22:00 08/06/25 21:33 100 MG Dimethicone 40 mg QIDP PRN PO 08/05/25 23:15 08/07/25 10:31 40 MG Laboratory Results Laboratory Tests 08/05/25 04:54 Urinalysis Test 07/30/25 09:28 Urine Color Colorless (Yellow) Urine Clarity Ex.turbid (Clear) Urine pH 7.0 (5.0-9.0) Urine Specific [place] 1.024 (1.001-1.035) Urine Protein Negative (Negative) Urine Ketones Negative (Negative) Urine Blood Negative /uL (Negative) Urine Nitrite Negative (Negative) Urine Bilirubin Negative (Negative) Urine Urobilinogen 2 mg/dL (Negative) H Urine Leukocyte Esterase Negative /uL (Negative) Urine RBC 1 /hpf (0 - 3) Urine WBC Clumps Present /hpf (None Seen) Urine Microscopic WBC 14 /HPF (0-3) H Urine Squamous Epithelial Cells None seen /hpf (<5) Urine Bacteria None seen /hpf (None Seen) Urine Glucose Normal mg/dL (Normal) Assessment/Plan Assessment/Plan * Parkinson's disease for which the patient will continue his home medications as prescribed. * Hyperlipidemia. * Status post lumbar spine surgery for severe neurogenic claudication. The patient will be placed on pain medication and receive physical therapy. Plan discussed with: Patient Date of Service: Aug 07, 2025 Billing Provider: ANTHONY ROBERTS MD Common Visit Codes: [id number] INP/OBS CARE(HIGH) ANTHONY ROBERTS MD Aug 07, 2025 13:14
[2025-08-08 01:00] VITALS: BP 104/76; PULSE 109; RESP 18; TEMP 97.5; O2SAT 97
[2025-08-08 05:00] VITALS: BP 109/78; PULSE 103; RESP 18; TEMP 97.8; O2SAT 97
[2025-08-08 09:01] VITALS: BP 112/78; PULSE 98; RESP 18; TEMP 98.3; O2SAT 99
[2025-08-08 12:14] VITALS: BP 122/82; PULSE 100; RESP 20; TEMP 98.5; O2SAT 97
--- NOTE | 2025-08-08 12:14 | DVHPN2 ---
Subjective In bed with some pain Reviewed: H&P Changes from previous H/P or p: No Changes Objective Vitals Vital Signs Date Time Temp Pulse Resp B/P (MAP) Pulse Ox O2 Delivery O2 Flow Rate FiO2 08/08/25 09:01 98.3 98 18 112/78 (89) 99 98.3 08/08/25 08:00 Room Air* 0 21 Intake/Output Intake and Output 08/08/25 07:00 Intake Total 1200 ml Output Total 2 ml Balance 1198 ml Intake Oral 1200 ml Stool Total 2 ml # Voids 7 General Appearance: Alert, Oriented X3 HEENT: Atraumatic Cardiovascular: Regular rate, Normal S1, Normal S2 Abdomen: Normal bowel sounds Medications Current Medications Medications Dose Ordered Sig/Tommy Route Start Time Stop Time Status Last Admin Dose Admin Ondansetron HCl 4 mg Q4HP PRN IV 08/03/25 19:15 Acetaminophen 650 mg Q6HP PRN PO 08/03/25 19:15 08/04/25 23:42 650 MG Acetaminophen/ Hydrocodone Bitart 1 tab Q6HP PRN PO 08/03/25 19:15 08/07/25 04:23 1 TAB Morphine Sulfate 1 mg Q4HP PRN IV 08/03/25 19:15 08/06/25 09:16 1 MG Cefazolin Sodium 50 ml @ 50 mls/hr Q8H IV 08/03/25 19:15 08/04/25 04:14 UNV Cyclobenzaprine HCl 10 mg TID PO 08/03/25 22:00 08/08/25 05:11 10 MG Docusate Sodium 100 mg BID PO 08/03/25 22:00 08/08/25 09:23 100 MG Nitroglycerin 0.4 mg Q5MINP PRN SL 08/03/25 19:15 Morphine Sulfate 2 mg Q30M PRN IV 08/03/25 19:15 Methocarbamol 500 mg TID PO 08/03/25 22:00 Hold Amantadine HCl 100 mg BID PO 08/03/25 22:00 08/08/25 09:21 100 MG Patient Own Medication 40 mg HS PO 08/03/25 22:00 08/07/25 21:36 40 MG Patient Own Medication 34 mg QPM PO 08/04/25 18:00 08/07/25 17:58 34 MG Patient Own Medication 1 mg QAM PO 08/04/25 07:00 08/08/25 05:11 1 MG Topiramate 50 mg BID PO 08/03/25 22:00 08/08/25 09:22 50 MG Carbidopa/Levodopa 1 tab BID PO 08/03/25 22:00 08/08/25 09:22 1 TAB Gabapentin 300 mg DAILY PO 08/04/25 10:00 08/08/25 09:22 300 MG Atorvastatin Calcium 10 mg DAILY PO 08/04/25 10:00 08/08/25 09:21 10 MG Trazodone HCl 100 mg HS PO 08/04/25 22:00 08/07/25 21:38 100 MG Dimethicone 40 mg QIDP PRN PO 08/05/25 23:15 08/07/25 10:31 40 MG Laboratory Results Laboratory Tests 08/05/25 04:54 Urinalysis Test 07/30/25 09:28 Urine Color Colorless (Yellow) Urine Clarity Ex.turbid (Clear) Urine pH 7.0 (5.0-9.0) Urine Specific [place] 1.024 (1.001-1.035) Urine Protein Negative (Negative) Urine Ketones Negative (Negative) Urine Blood Negative /uL (Negative) Urine Nitrite Negative (Negative) Urine Bilirubin Negative (Negative) Urine Urobilinogen 2 mg/dL (Negative) H Urine Leukocyte Esterase Negative /uL (Negative) Urine RBC 1 /hpf (0 - 3) Urine WBC Clumps Present /hpf (None Seen) Urine Microscopic WBC 14 /HPF (0-3) H Urine Squamous Epithelial Cells None seen /hpf (<5) Urine Bacteria None seen /hpf (None Seen) Urine Glucose Normal mg/dL (Normal) Assessment/Plan Assessment/Plan * Parkinson's disease for which the patient will continue his home medications as prescribed. * Hyperlipidemia. * Status post lumbar spine surgery for severe neurogenic claudication. The patient will be placed on pain medication and receive physical therapy. 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
[2025-08-08 16:20] VITALS: TEMP 36.9
[2025-08-08 16:55] VITALS: BP 120/84; PULSE 107; RESP 18; TEMP 98.1; O2SAT 94
== END 2025-08-08 16:23 | DRG 448 ==
LOC: SUR 09:58 → OVERFLOW 19:06 → TELE-CENTR 21:31 → CENTRAL 08-05 10:19
PROVIDERS: ADMIT Hospitalist; ATTEND Hospitalist
PROC: 01NB0ZZ Release Lumbar Nerve, Open Approach (ICD-10-PCS; 2025-08-03)
PROC: 00NY0ZZ Release Lumbar Spinal Cord, Open Approach (ICD-10-PCS; 2025-08-03)
PROC: 4A11X4G Monitoring of Peripheral Nervous Electrical Activity, Intraoperative, External Approach (ICD-10-PCS; 2025-08-03)
PROC: 0SG1071 Fusion of 2 or more Lumbar Vertebral Joints with Autologous Tissue Substitute, Posterior Approach, Posterior Column, Open Approach (ICD-10-PCS; principal; 2025-08-03 15:55)
DX: M48.062 Spinal stenosis, lumbar region with neurogenic claudication (principal); G20.A1 Parkinson's disease without dyskinesia, without mention of fluctuations; E78.5 Hyperlipidemia, unspecified; M51.16 Intervertebral disc disorders with radiculopathy, lumbar region
CPT/HCPCS: 36415; 72100; 76000; 80053; 81001; 85025; 85610; 85730; 86850; 86900; 86901; 97110; 97116; 97163; 97530; A4344; G0378; J0131; J1956; J2250; J2405; J2704